=== PATIENT | female | born 1990 | race Two or more races ===

== ENCOUNTER 2022-02-27 02:10 | Inpatient (IN) | payer OTHER ==
[2022-02-27] MEDS ORDERED: ACETAMINOPHEN 325 MG TABLET (FP) ONE (03:16)
[2022-02-27] MEDS ORDERED: ACETAMINOPHEN 325 MG TABLET (FP) PO ONE (03:20)
[2022-02-27] MEDS: DEXTROSE 5%-LACTATED RINGERS 1,000 ML IV SCH ×2 (05:05→09:14)
[2022-02-27 05:38] LABS: BASO % 0.4 % (0-2.0); EOS % 0.5 % (0-4.5); HEMATOCRIT 37.4 % (32.4-45.2); HEMOGLOBIN 11.9 GM/dL (10.7-15.3); LYMPH % 25.1 % (8-40); MCH 27.9 pg (25.7-33.7); MCHC 31.8 g/dl (32.0-36.0); MEAN CELL VOLUME 87.7 fl (80-96); MEAN PLT VOLUME 10.3 fl (7.5-11.1); MONO % 8.2 % (3.8-10.2); NEUT % 65.8 % (42.8-82.8); PLATELET COUNT 294 10^3/uL (134-434); RBC 4.26 M/mm3 (3.60-5.2); RDW 14.4 % (11.6-15.6); WHITE BLOOD COUNT 11.1 K/mm3 (4.0-10.0)
[2022-02-27 05:59] LABS: BLOOD UREA NITROGEN 9.1 mg/dL (7-18); CALCIUM 8.9 mg/dL (8.5-10.1)
[2022-02-27 06:01] VITALS: BMI 25.3
[2022-02-27 06:02] LABS: CREATININE 0.5 mg/dL (0.55-1.3)
[2022-02-27 06:11] LABS: PROTHROMBIN TIME (PATIENT) 11.5 SEC (9.7-13.0)
[2022-02-27 06:13] LABS: ACTIVATED PTT 28.1 SECONDS (25.2-36.5)
[2022-02-27 06:27] LABS: SYPHILIS W/ RPR CONF NON-REACTIVE (NONREACTIVE)
[2022-02-27 06:56] LABS: HIV INTERPRETATION NEGATIVE (NEGATIVE)
[2022-02-27] MEDS ORDERED: ONDANSETRON 4 MG/2 ML VIAL IVPUSH PRN (16:20)
[2022-02-27] MEDS ORDERED: morphine SULFATE/PF 1 MG/2 ML (2cc Syringe - QUVA) ONE (16:32)
[2022-02-27] MEDS ORDERED: PHENYLEPHRINE HCL 10 MG/1 ML SINGLE DOSE VIAL ONE (16:52)
[2022-02-27] MEDS ORDERED: ONDANSETRON 4 MG/2 ML VIAL ONE (16:53)
[2022-02-27] MEDS ORDERED: ceFAZolin SODIUM 1 GM VIAL ONE (16:54)
[2022-02-27 17:49] LABS: CORD HCO3 25.3 mmHg (20-29); CORD PCO2 63.7 mmHg (30-78); CORD pH 7.217 (7.14-7.44)
[2022-02-27 17:51] LABS: CORD BASE EXCESS -1.7 mmol/L (0-2); CORD HCO3 24.4 mmHg (20-29); CORD PCO2 46.4 mmHg (30-78); CORD pH 7.339 (7.14-7.44)
[2022-02-27] MEDS ORDERED: CITRIC ACID/SODIUM CITRATE 30 ML UNIT-DOSE CUP PO ONE (18:18)
[2022-02-27] MEDS ORDERED: ACETAMINOPHEN 325 MG TABLET (FP) PO PRN (18:22)
[2022-02-27] MEDS: OXYTOCIN 20 UNITS in 0.9% NS 20 UNIT/1,000 ML INFUS.BAG IV SCH (21:05)
[2022-02-27] MEDS ORDERED: ACETAMINOPHEN INJECTION 100 ML IVPB ONE (21:39)
[2022-02-27] MEDS ORDERED: ACETAMINOPHEN 1000 MG/100 ML BAG IVPB ONE (23:45)
[2022-02-28] MEDS ORDERED: oxyCODONE HCL 5 MG TABLET PO PRN (06:22)
[2022-02-28 08:13] LABS: BASO % 0.4 % (0-2.0); EOS % 0.3 % (0-4.5); HEMATOCRIT 32.7 % (32.4-45.2); HEMOGLOBIN 10.7 GM/dL (10.7-15.3); LYMPH % 11.2 % (8-40); MCH 28.8 pg (25.7-33.7); MCHC 32.7 g/dl (32.0-36.0); MEAN CELL VOLUME 87.9 fl (80-96); MEAN PLT VOLUME 9.3 fl (7.5-11.1); MONO % 7.8 % (3.8-10.2); NEUT % 80.3 % (42.8-82.8); PLATELET COUNT 214 10^3/uL (134-434); RBC 3.72 M/mm3 (3.60-5.2); WHITE BLOOD COUNT 12.9 K/mm3 (4.0-10.0)
[2022-02-28] MEDS: IBUPROFEN 600 MG TABLET (FP) PO PRN ×2 (09:38→21:32)
[2022-02-28] MEDS: SIMETHICONE 80 MG TAB.CHEW (FP) PO PRN ×3 (10:56→21:32)
[2022-02-28] MEDS: OXYTOCIN 20 UNITS in 0.9% NS 20 UNIT/1,000 ML INFUS.BAG IV SCH (13:32)
[2022-03-01] MEDS: SIMETHICONE 80 MG TAB.CHEW (FP) PO PRN ×3 (08:43→18:02)
[2022-03-01] MEDS: IBUPROFEN 600 MG TABLET (FP) PO PRN ×3 (08:43→18:02)
[2022-03-01 14:06] VITALS: RESP 16
[2022-03-02] MEDS: IBUPROFEN 600 MG TABLET (FP) PO PRN (07:53)
[2022-03-02 08:53] VITALS: BP 118/75; PULSE 69; TEMP 98.5
[2022-03-02 09:18] LABS: BASO % 0.4 % (0-2.0); EOS % 0.8 % (0-4.5); HEMATOCRIT 29.4 % (32.4-45.2); HEMOGLOBIN 9.7 GM/dL (10.7-15.3); LYMPH % 25.8 % (8-40); MCH 29.1 pg (25.7-33.7); MEAN PLT VOLUME 9.6 fl (7.5-11.1); MONO % 9.4 % (3.8-10.2); NEUT % 63.6 % (42.8-82.8); PLATELET COUNT 219 10^3/uL (134-434); RBC 3.34 M/mm3 (3.60-5.2); RDW 14.2 % (11.6-15.6); WHITE BLOOD COUNT 8.4 K/mm3 (4.0-10.0)
== END 2022-03-02 14:15 | disposition home or self-care (01) | DRG 540 ==
LOC: JDEL 02:10 → JLDR 04:30 → J3W 20:17
PROVIDERS: ADMIT Obstetrics & Gynecology Maternal & Fetal Medicine; ATTEND Obstetrics & Gynecology Maternal & Fetal Medicine
PROC: 10D00Z1 Extraction of Products of Conception, Low, Open Approach (ICD-10-PCS; principal; 2022-02-27)
DX: O32.1XX0 Maternal care for breech presentation, not applicable or unspecified (principal); O69.89X0 Labor and delivery complicated by other cord complications, not applicable or unspecified; Z3A.38 38 weeks gestation of pregnancy; Z37.0 Single live birth
CPT/HCPCS: 36415; 36600; 59025; 80048; 82803; 85025; 85610; 85730; 86780; 86850; 86900; 86901; 87389; 88307-TC; C9803-CS; U0003; U0005